=== PATIENT | female | born 1990 ===

== ENCOUNTER 2021-09-02 09:43 | Outpatient (REF) | payer BC, SELFPAY ==
[2021-09-04 11:01] LABS: COVID-19 RT-PCR UVMMC Result Negative (Negative)
== END 2021-09-02 09:44 | disposition home or self-care (01) ==
LOC: LBN 09:43
PROVIDERS: PCP Nurse Practitioner Family; Visit Provider Nurse Practitioner Family
DX: Z20.822 Contact with and (suspected) exposure to COVID-19 (principal)
CPT/HCPCS: U0003

== ENCOUNTER 2021-09-20 03:56 | Outpatient (CLI) | payer BC, SELFPAY ==
[2021-09-22 16:10] LABS: Hemoglobinopathy Interpretat (See Note)
== END 2021-09-20 03:57 | disposition home or self-care (01) ==
LOC: LBO 03:56
PROVIDERS: PCP Nurse Practitioner Family; Visit Provider Obstetrics & Gynecology
DX: Z83.2 Family history of diseases of the blood and blood-forming organs and certain disorders involving the immune mechanism (principal)
CPT/HCPCS: 36415; 83020

== ENCOUNTER 2021-09-30 08:33 | Outpatient (CLI) | payer BC, SELFPAY ==
[2021-09-30 12:43] LABS: HCT 36.9 % (36.0-46.0); HGB 11.4 g/dL (11.2-15.7); MCH 21.8 pg (27.0-33.0); MCHC 30.9 % (32.0-36.0); MCV 70.4 fL (80-95); Platelet Count 189 10^3/uL (130-400); RBC 5.24 10^6/uL (3.93-5.22); RDW 16.6 % (11.7-14.6); RDW-SD 38.4 fL; WBC 6.04 10^3/uL (4.4-10.8)
[2021-09-30 12:55] LABS: Iron 65 ug/dL (50-170); Total Iron Binding Capacity 230 ug/dL (250-450); Transferrin Sat 28 % (15-50)
[2021-09-30 13:16] LABS: ALT 25 U/L (14-59); AST 14 U/L (15-37); Albumin 3.9 g/dL (3.4-5.0); Alkaline Phosphatase 32 U/L (46-116); Anion Gap 8.4 mmol/L (3-11); BUN 16 mg/dL (7-18); Bilirubin, Total 0.4 mg/dL (0.2-1.0); CO2 28.6 mmol/L (21.0-32.0); CREATININE 0.5 mg/dL (0.55-1.02); Calcium 8.7 mg/dL (8.5-10.1); Calculated LDL 110 mg/dL (<100); Chloride 104 mmol/L (98-107); Cholesterol 199 mg/dL (<200); Ferritin 133 ng/mL (8-252); Glucose 88 mg/dL (74-106); HDL Cholesterol 81 mg/dL (40-60); Potassium 4.6 mmol/L (3.5-5.1); Sodium 141 mmol/L (136-145); TSH 1.52 uIU/mL (0.36-3.74); Total Protein 7.3 g/dL (6.4-8.2); Triglyceride 43 mg/dL (<150)
[2021-09-30 13:47] LABS: Hemoglobin A1C 5.2 % (<5.7)
[2021-10-01 09:52] LABS: Transferrin 182 mg/dL (201-352)
== END 2021-09-30 08:34 | disposition home or self-care (01) ==
LOC: LOS 08:34
PROVIDERS: PCP Nurse Practitioner Family; Referring Provider Nurse Practitioner Family; Visit Provider Nurse Practitioner Family
DX: Z13.220 Encounter for screening for lipoid disorders (principal); Z13.1 Encounter for screening for diabetes mellitus; Z13.29 Encounter for screening for other suspected endocrine disorder; Z13.0 Encounter for screening for diseases of the blood and blood-forming organs and certain disorders involving the immune mechanism; Z83.2 Family history of diseases of the blood and blood-forming organs and certain disorders involving the immune mechanism
CPT/HCPCS: 36415; 80053; 80061; 85027; 82728; 83036; 83540; 83550; 84443; 84466